=== PATIENT | male | born 1975 | race Caucasian/White ===

== ENCOUNTER 2021-06-30 09:34 | Emergency (ER) | payer OTHER ==
[~2021-06-30] VITALS: Ht 162.6 cm; Wt 72.7 kg
[2021-06-30 10:30] VITALS: BP 134/81
== END 2021-06-30 10:47 | disposition home or self-care (01) ==
LOC: EMS 09:37
DX: T14.90XA Injury, unspecified, initial encounter (principal); I10 Essential (primary) hypertension; E11.9 Type 2 diabetes mellitus without complications; E78.00 Pure hypercholesterolemia, unspecified; V47.5XXA Car driver injured in collision with fixed or stationary object in traffic accident, initial encounter; Y93.89 Activity, other specified; Y92.89 Other specified places as the place of occurrence of the external cause; Y99.8 Other external cause status
CPT/HCPCS: 99283; Z7502